=== PATIENT | male | born 1965 | race Caucasian/White ===

== ENCOUNTER 2016-03-16 10:06 | Day surgery (SDC) | payer OTHER ==
[2016-03-15 14:21] LABS: ABSOLUTE BASOPHILS # (AUTO) 0.1 10^3/uL (0.0-0.2); ABSOLUTE EOSINOPHILS # (AUTO) 0.2 10^3/uL (0.0-0.6); ABSOLUTE LYMPHOCYTES (AUTO) 2.4 10^3/uL (0.5-4.7); ABSOLUTE MONOCYTES (AUTO) 0.8 10^3/uL (0.1-1.4); ABSOLUTE NEUT (AUTO) 4.3 10^3/uL (1.7-8.2); APPEARANCE,URINE CLOUDY; BASOPHILS % (AUTO) 0.7 % (0-2); BILIRUBIN,URINE NEGATIVE (NEGATIVE); EOSINOPHILS % (AUTO) 2.6 % (0-6); GLUCOSE, URINE NEGATIVE (NEGATIVE); HEMATOCRIT 41.1 % (37.9-51.0); HEMOGLOBIN 13.8 g/dL (13.5-17.0); HGB HCT DIFFERENCE 0.3; KETONES,URINE NEGATIVE (NEGATIVE); LEUKOCYTE ESTERASE,URINE NEGATIVE (NEGATIVE); LYMPHOCYTES % (AUTO) 30.4 % (13-45); MEAN CORPUSCULAR HGB CONC 33.5 g/dL (32.0-36.0); MEAN CORPUSCULAR VOLUME 87 fl (80-97); MONOCYTES % (AUTO) 10.3 % (3-13); NITRITE,URINE NEGATIVE (NEGATIVE); PROTEIN,URINE NEGATIVE (NEGATIVE); RED BLOOD COUNT 4.74 10^6/uL (4.35-5.55); RED CELL DISTRIBUTION WIDTH 15.3 % (11.5-14.0); URINE SPECIFIC GRAVITY 1.013; UROBILINOGEN,URINE NEGATIVE mg/dL (<2.0); WHITE BLOOD COUNT 7.7 10^3/uL (4.0-10.5)
[~2016-03-16 10:06] MED LIST: CEFAZOLIN 1 GM/D5W RTU 1 GM/50 ML RTUPB IV PRN; RINGERS SOLUTION,LACTATED 1,000 ML IV PRN
[2016-03-16] MEDS ORDERED: LIDOCAINE 2% INJ (20 MG/ML) 20 ML MDV ONE (10:34)
[2016-03-16] MEDS ORDERED: BUPIVACAINE HCL 0.5 % INJ/PF 30 ML SDV ONE (10:34)
[2016-03-16] MEDS ORDERED: MIDAZOLAM 2 MG/2 ML INJ ONE (10:40)
[2016-03-16] MEDS ORDERED: PROPOFOL INJ 200 MG/20 ML VIAL IV ONE (10:41)
[2016-03-16] MEDS ORDERED: HYDROMORPHONE HCL INJ/PF 2 MG/ML AMPULE ONE (10:41)
[2016-03-16] MEDS ORDERED: ONDANSETRON HCL INJ/PF 4 MG/2 ML SDV ONE (10:41)
[2016-03-16] MEDS ORDERED: METOCLOPRAMIDE HCL INJ/PF 10 MG/2 ML SDV ONE (10:42)
--- NOTE | 2016-03-16 13:53 | [facility] OPERATIVE REPORT E ---
[facility] Operative Report NAME: ISABELL KENDRICK AGE: 51Y DATE OF SURGERY: 03/16/2016 ROOM: PREOPERATIVE DIAGNOSIS: Rangel neuroma, third intermetatarsal space, left foot. POSTOPERATIVE DIAGNOSIS: Rangel neuroma, third intermetatarsal space, left foot. OPERATION: Excision of Rangel neuroma, third intermetatarsal space, left foot. SURGEON: JEANNIE MONTENEGRO D.P.M. INTRAOPERATIVE FINDINGS: Indicated an enlargement of nerve tissue at the junction of the bifurcation of the third common digital nerve into the proper digital nerves innervating the adjacent sides of the third and fourth toe. Intraoperative findings were confirmed clinically. PROCEDURE: The patient was laying in the dorsal recumbent position. The left foot and leg were prepped and draped in the usual standard sterile orthopedic manner. After the local anesthesia was administered which was a regional infiltration around the surgical field with a 50/50 mixture of 2% Xylocaine and 0.5% Marcaine. After the anesthetic effect was accomplished, the left leg was elevated for approximately 2 minutes of time, and the left ankle pneumatic tourniquet was inflated up to 250 mmHg after the blood was exsanguinated from the left foot. The left leg was brought to the level of the table. Attention was directed right over the intermetatarsal areas of the third and fourth metatarsal. A curvilinear incision was placed right over the C area. The incision commenced at the web sites of the third and fourth toes distally and extended to the proximal one-third of the shafts of the fourth and third metatarsals. The initial incision was deepened. The superficial and deep subcutaneous tissues were dissected through blunt and sharp dissection. All bleeders were ligated. All vital structures were identified and protected from surgical trauma. At this point, the transverse ligament between the fourth and third metatarsal was severed. Pressure was applied on the plantar aspect of the foot, and the neuroma was brought into the surgical field. The neuroma was traced back proximally and distally until normal neurological tissue was encountered, and it was severed to that point. Final dilation was conducted. There was no further pathological tissue. At this point, the digital tourniquet was deflated, circulation to the left foot returned to normal immediately, and the normal digital color and temperature became apparent. After that, the surgical area was irrigated with copious amounts of sterile saline solution, and the closure of the subcutaneous tissues from deep to superficial was done at this point. The skin edges were repositioned and closed with 2-0 Vicryl using continuous interlocked stitch. A [place] was introduced into the surgical field to allow evacuation if there is any bleeding postoperatively and to protect hematoma formation into the surgical field. Next, a Betadine compression dressing was applied around the left foot. Patient tolerated procedures well, left the operating room with stable vital signs and in good condition. The patient was taken to the recovery room alert, conscious, and oriented. There are no permanent disabilities anticipated at this time. DICTATING PHYSICIAN: JEANNIE MONTENEGRO D.P.M. [id number] PHY#: [id number] ID: [id number] JOB#: [id number] ACCT: [id number] cc:JEANNIE MONTENEGRO D.P.M. >
== END 2016-03-16 12:54 | disposition home or self-care (01) ==
LOC: SC 10:06
PROVIDERS: ATTEND Podiatrist Foot & Ankle Surgery
PROC: 01BG0ZZ Excision of Tibial Nerve, Open Approach (ICD-10-PCS; principal; 2016-03-16 11:00)
DX: G57.62 Lesion of plantar nerve, left lower limb (principal); I10 Essential (primary) hypertension; J45.909 Unspecified asthma, uncomplicated; K21.9 Gastro-esophageal reflux disease without esophagitis
CPT/HCPCS: 36415; 85025; 81001; 88304 ×2; 28080; J2250; J3490; J0690; J2765; J1170; J2405; J2704; 1470

== ENCOUNTER 2017-07-31 09:30 | Day surgery (SDC) | payer OTHER ==
[~2017-07-31 09:30] MED LIST changes: -CEFAZOLIN 1 GM/D5W RTU 1 GM/50 ML RTUPB IV PRN; +PROPOFOL INJ 200 MG/20 ML VIAL IV ONE; -RINGERS SOLUTION,LACTATED 1,000 ML IV PRN
[2017-07-31 11:42] VITALS: BP 132/80
--- NOTE | 2017-07-31 13:49 | Operative Report ---
Operative Report DATE OF SURGERY: 07/31/17 Operative Report: The risks, benefits and alternatives of the procedure including risks of bleeding, perforation requiring surgery are explained to the patient in detail and informed consent is obtained. Patient was taken back to the endoscopy suite and placed in the left, lateral decubital position. Timeout was called. Propofol medication is administered. A rectal examination is done which did not reveal any masses, tears or fissures. An Olympus videoscope was inserted into the patient's rectum. The scope was then carefully advanced all the way to the cecum. The cecum was identified by the usual anatomical landmarks including the ileocecal valve as well as the appendiceal office. Photodocumentation is obtained. The scope was then sequentially pulled back via the various segments of the colon including the ascending colon, hepatic flexure, transverse colon, splenic flexure, descending colon and finally in to the rectosigmoid portions of the colon. Retroflexion maneuver is performed. PREOPERATIVE DIAGNOSIS: Colorectal cancer screening POSTOPERATIVE DIAGNOSIS: Cecal polyp was removed via biopsy forceps. Internal hemorrhoids OPERATION: Colonoscopy with biopsy SURGEON: STELLA CASTILLO ANESTHESIA: LMAC TISSUE REMOVED OR ALTERED: As noted above. COMPLICATIONS: None. ESTIMATED BLOOD LOSS: None. INTRAOPERATIVE FINDINGS: As noted above. PROCEDURE: Patient tolerated the procedure well. No immediate postprocedure complications are noted. Patient discharged in good condition. Discharge date 07/31/2017. Discharge diet: Regular. Discharge activity: Regular. 2-3 week follow-up to discuss findings. Patient is instructed to call the office or proceed to the emergency room should there be any further problems or questions. 3-5 year surveillance colonoscopy. We will await biopsies.
== END 2017-07-31 11:30 | disposition home or self-care (01) ==
LOC: END 09:30
PROVIDERS: ATTEND Internal Medicine Gastroenterology
DX: Z12.11 Encounter for screening for malignant neoplasm of colon (principal); D12.0 Benign neoplasm of cecum; K64.8 Other hemorrhoids; J45.30 Mild persistent asthma, uncomplicated; G47.30 Sleep apnea, unspecified; E78.00 Pure hypercholesterolemia, unspecified; I10 Essential (primary) hypertension; Z79.51 Long term (current) use of inhaled steroids
CPT/HCPCS: 45380; 88305 ×2; J2704; 811

== ENCOUNTER 2018-07-24 12:35 | Day surgery (SDC) | payer OTHER ==
[2018-07-17 10:16] LABS: ABSOLUTE BASOPHILS # (AUTO) 0.1 10^3/uL (0.0-0.2); ABSOLUTE EOSINOPHILS # (AUTO) 0.2 10^3/uL (0.0-0.6); ABSOLUTE LYMPHOCYTES (AUTO) 2.6 10^3/uL (0.5-4.7); ABSOLUTE MONOCYTES (AUTO) 0.8 10^3/uL (0.1-1.4); ABSOLUTE NEUT (AUTO) 3.5 10^3/uL (1.7-8.2); BASOPHILS % (AUTO) 0.9 % (0-2); EOSINOPHILS % (AUTO) 3.5 % (0-6); HEMATOCRIT 41.1 % (37.9-51.0); HEMOGLOBIN 13.7 g/dL (13.5-17.0); LYMPHOCYTES % (AUTO) 36.1 % (13-45); MEAN CORPUSCULAR HGB CONC 33.4 g/dL (32.0-36.0); MEAN CORPUSCULAR VOLUME 87 fl (80-97); MONOCYTES % (AUTO) 10.9 % (3-13); PLATELET COUNT 268 10^3/uL (150-450); RED BLOOD COUNT 4.74 10^6/uL (4.35-5.55); RED CELL DISTRIBUTION WIDTH 14.6 % (11.5-14.0); SEGMENTED NEUTROPHILS % (AUTO) 48.6 % (42-78); TOTAL CELLS COUNTED % (AUTO) 100 %; WHITE BLOOD COUNT 7.2 10^3/uL (4.0-10.5)
[2018-07-17 10:47] LABS: ANION GAP 14 (5-19); BLOOD UREA NITROGEN 13 mg/dL (7-20); CARBON DIOXIDE 25 mmol/L (22-30); CHLORIDE 106 mmol/L (98-107); GLUCOSE 80 mg/dL (75-110); POTASSIUM 5.2 mmol/L (3.6-5.0); SODIUM 144.5 mmol/L (137-145)
--- NOTE | 2018-07-17 14:00 | EKG REPORT ---
SEVERITY:- NORMAL ECG - SINUS RHYTHM : Confirmed by: Beltran Kendall MD 17-Jul-2018 14:00:38
[~2018-07-24 12:35] MED LIST changes: +BUPIVACAINE HCL 0.5%-EPI 1:200000 INJ/PF 30 ML VIAL ONE; -PROPOFOL INJ 200 MG/20 ML VIAL IV ONE
[2018-07-24] MEDS ORDERED: DEXAMETHASONE SOD PHOSPHATE INJ 4 MG/1 ML VIAL ONE (12:46)
[2018-07-24] MEDS ORDERED: ONDANSETRON HCL INJ/PF 4 MG/2 ML SDV ONE (12:46)
[2018-07-24] MEDS ORDERED: SUCCINYLCHOLINE CHLORIDE INJ 200 MG/10 ML VIAL ONE (12:46)
[2018-07-24] MEDS ORDERED: METOCLOPRAMIDE HCL INJ/PF 10 MG/2 ML SDV ONE (12:46)
[2018-07-24] MEDS ORDERED: CEFAZOLIN 2 GM/D5W RTU 0 GM/0 ML RTUPB IV ONE (14:29)
[2018-07-24] MEDS ORDERED: CEFAZOLIN 1 GM/D5W RTU 1 GM/50 ML RTUPB IV ONE ×2 (14:31→14:37)
[2018-07-24] MEDS ORDERED: LIDOCAINE 2% INJ-PF (100 MG/5 ML) SYRINGE ONE (14:35)
[2018-07-24] MEDS ORDERED: FENTANYL CITRATE INJ/PF 250 MCG/5 ML AMPULE ONE (14:36)
[2018-07-24] MEDS ORDERED: PROPOFOL INJ 200 MG/20 ML VIAL IV ONE (14:36)
[2018-07-24] MEDS ORDERED: MIDAZOLAM 2 MG/2 ML INJ ONE (14:36)
[2018-07-24] MEDS ORDERED: METHYLENE BLUE 50 MG/10 ML AMPULE ONE (14:46)
[2018-07-24] MEDS ORDERED: FAMOTIDINE INJ/PF 20 MG/2 ML SDV IV ONE (14:51)
[2018-07-24] MEDS ORDERED: PROMETHAZINE HCL INJ 25 MG/1 ML VIAL IV PRN ×2 (15:36)
[2018-07-24] MEDS ORDERED: DIPHENHYDRAMINE HCL 50 MG/ML VIAL IV PRN (15:36)
[2018-07-24] MEDS ORDERED: MEPERIDINE HCL/PF INJ 25 MG/1 ML DISP.SYRIN IV PRN (15:36)
[2018-07-24] MEDS ORDERED: MORPHINE SULFATE 10 MG/ML INJ IV PRN (15:36)
[2018-07-24] MEDS ORDERED: ONDANSETRON HCL INJ/PF 4 MG/2 ML SDV IV PRN (15:36)
[2018-07-24] MEDS ORDERED: OXYCODONE-ACETAMINOPHEN 5-325 MG TABLET PO PRN ×2 (15:36)
[2018-07-24] MEDS ORDERED: FENTANYL CITRATE INJ/PF 100 MCG/2 ML AMPUL IV PRN ×3 (15:36)
[2018-07-24] MEDS ORDERED: FENTANYL CITRATE INJ/PF 100 MCG/2 ML AMPUL ONE (16:10)
--- NOTE | 2018-07-24 16:17 | Operative Report ---
Nonrecallable Operative Report DATE OF SURGERY: 07/24/18 PREOPERATIVE DIAGNOSIS: perirectal fistula POSTOPERATIVE DIAGNOSIS: perirectal abscess OPERATION: exam under anesthesia and drainage of perirectal abscess SURGEON: OLGA CALDERON ANESTHESIA: GA TISSUE REMOVED OR ALTERED: none COMPLICATIONS: none ESTIMATED BLOOD LOSS: 20cc. PROCEDURE: see dictation
--- NOTE | 2018-07-24 16:22 | Discharge Summary ---
Discharge Summary (SDC) - Discharge Final Diagnosis: perirectal abscess Date of Surgery: 07/24/18 Discharge Date: 07/24/18 Condition: Good Treatment or Instructions: leave gauze in place till tomorrow return to clinic tomorrow at 1pm for me to remove the gauze Referrals: JOSE DAVID ENG DO [Primary Care Provider] - Discharge Diet: As Tolerated Discharge Activity: Activity As Tolerated, No Lifting Over 10 Pounds Report the Following to Your Physician Immediately: Shortness of Breath, Nausea, Vomiting, Increase in Pain, Unusual Bleeding - pt needs to come to my office at 1pm [id number] 07/25 to have the pack removed
[2018-07-24] MEDS ORDERED: LIDOCAINE 2% INJ (20 MG/ML) 20 ML MDV ONE (16:23)
[2018-07-24] MEDS ORDERED: OXYCODONE-ACETAMINOPHEN 5-325 MG TABLET ONE (17:24)
--- NOTE | 2018-07-24 17:45 | OPERATIVE REPORT E ---
Operative Report NAME: ISABELL KENDRICK JR : 1965 AGE: 53Y DATE OF SURGERY: 07/24/2018 ROOM: PREOPERATIVE DIAGNOSIS: PERIRECTAL FISTULA. POSTOPERATIVE DIAGNOSIS: PERIRECTAL ABSCESS. OPERATION: 1. Exam under anesthesia. 2. Incision and drainage of perirectal abscess. SURGEON: OLGA CALDERON M.D. INDICATIONS FOR SURGERY: This is a 53-year-old male who presented to my office a number of weeks ago with persistent drainage through a small perirectal skin defect that had been previously drained as a perirectal abscess. In the office it was reopened and he continued to have drainage from that punctate area on his inner buttock approximately about 4 to 5 cm from the anal verge. It was felt that he had a perirectal fistula as the area would continually heal over and then reopen and drain. He was, therefore, scheduled for this exam under anesthesia and possible fistulotomy. FINDINGS: Rectal abscess cavity but no rectal fistulous tract. PROCEDURE IN DETAIL: The patient was brought to the operating in an awake, alert, and stable condition. He was placed on the operating room table in the supine position, induced under general anesthesia and then placed up in a high lithotomy position. Once this was done the perineum and rectum were prepped and draped in the usual sterile fashion. After appropriate timeout and site verification the anoscope was placed into the rectum. The fistula was at the 5 o'clock position with the patient in a supine position lithotomy. We pressed the fistula tissue and the buttock tissue and did not note any kind of internal drainage in all 4 quadrants of the rectum with the anoscope in place. I then used an 18 gauge intra-cath attached to a syringe filled with methylene blue dye saline and the catheter easily passed in through the fistulous tract and then injected the methylene blue dye saline and it did not empty into a sinus tract within the rectum itself. It did fill a small cavity in the perirectal fat but I could not identify a tract that directly entered the rectum. I then placed a small fistula probe in through the skin defect and it progressed towards the rectum but it did not drop into the rectum itself. I increased the skin defect over the probe with the Bovie cautery to open up the skin defect on the perirectal tissue and this dropped into a cavity in the perirectal space. I then used Asepto syringe and placed the tip into the cavity and instilled dye under some pressure and could not elicit drainage into the rectum itself at all. I, therefore, elected to irrigate out this cavity and pack it with an Iodoform packing as I did not want to create a new fistulous tract, nor did I identify a fistulous tract in the rectum itself. Therefore, the cavity was packed with Iodoform gauze and this completed the procedure. The patient was awakened in the operating room, extubated, and transferred to recovery in stable condition. DICTATING PHYSICIAN: OLGA CALDERON M.D. [id number] PHY#: [id number] ID: [id number] JOB#: [id number] ACCT: [id number] cc:OLGA CALDERON M.D. >
[2018-07-24 19:00] VITALS: BP 141/80
== END 2018-07-24 18:40 | disposition home or self-care (01) ==
LOC: OROUT 12:35
PROVIDERS: ATTEND Surgery
DX: K61.1 Rectal abscess (principal); I10 Essential (primary) hypertension; K21.9 Gastro-esophageal reflux disease without esophagitis; E78.00 Pure hypercholesterolemia, unspecified; Z79.891 Long term (current) use of opiate analgesic; Z79.82 Long term (current) use of aspirin; Z79.899 Other long term (current) drug therapy; J45.909 Unspecified asthma, uncomplicated; I20.9 Angina pectoris, unspecified
CPT/HCPCS: 93005; 36415 ×2; 84132; 85025; 80048; 93010; 46040; A6266; J2250; J3490; J0690; J1100; J3010 ×2; J2001; J2765; J0330; J2405; J2704; S0028; Q9968

== ENCOUNTER 2019-01-06 05:58 | Day surgery (SDC) | payer OTHER ==
[2019-01-05 11:00] LABS: ABSOLUTE BASOPHILS # (AUTO) 0.1 10^3/uL (0.0-0.2); ABSOLUTE EOSINOPHILS # (AUTO) 0.2 10^3/uL (0.0-0.6); ABSOLUTE LYMPHOCYTES (AUTO) 2.5 10^3/uL (0.5-4.7); ABSOLUTE MONOCYTES (AUTO) 0.8 10^3/uL (0.1-1.4); ABSOLUTE NEUT (AUTO) 5.2 10^3/uL (1.7-8.2); BASOPHILS % (AUTO) 0.9 % (0-2); HEMATOCRIT 41.2 % (37.9-51.0); HEMOGLOBIN 13.8 g/dL (13.5-17.0); MEAN CORPUSCULAR HEMOGLOBIN 29.3 pg (27.0-33.4); MEAN CORPUSCULAR HGB CONC 33.5 g/dL (32.0-36.0); MEAN CORPUSCULAR VOLUME 88 fl (80-97); PLATELET COUNT 252 10^3/uL (150-450); RED BLOOD COUNT 4.71 10^6/uL (4.35-5.55); RED CELL DISTRIBUTION WIDTH 14.3 % (11.5-14.0); SEGMENTED NEUTROPHILS % (AUTO) 59.1 % (42-78); TOTAL CELLS COUNTED % (AUTO) 100 %; WHITE BLOOD COUNT 8.7 10^3/uL (4.0-10.5)
[2019-01-05 11:28] LABS: ANION GAP 11 (5-19); BLOOD UREA NITROGEN 15 mg/dL (7-20); CALCIUM 9.7 mg/dL (8.4-10.2); CARBON DIOXIDE 27 mmol/L (22-30); CHLORIDE 105 mmol/L (98-107); GLUCOSE 96 mg/dL (75-110); POTASSIUM 5.1 mmol/L (3.6-5.0)
[~2019-01-06 05:58] MED LIST changes: -BUPIVACAINE HCL 0.5%-EPI 1:200000 INJ/PF 30 ML VIAL ONE; +CEFAZOLIN SODIUM 1 GM in DEXTROSE 5%-WATER 50 ML IV PRN; +METRONIDAZOLE 500 MG/NS RTU 500 MG/100 ML RTUPB IV ONE; +METRONIDAZOLE 500 MG/NS RTU 500 MG/100 ML RTUPB IV PRN
[2019-01-06] MEDS ORDERED: FENTANYL CITRATE INJ/PF 100 MCG/2 ML AMPUL ONE (06:21)
[2019-01-06] MEDS ORDERED: MIDAZOLAM 2 MG/2 ML INJ ONE (06:21)
[2019-01-06] MEDS ORDERED: PROPOFOL INJ 200 MG/20 ML VIAL IV ONE (06:21)
[2019-01-06] MEDS ORDERED: DEXAMETHASONE SOD PHOSPHATE INJ 4 MG/1 ML VIAL ONE (06:21)
[2019-01-06] MEDS ORDERED: ONDANSETRON HCL INJ/PF 4 MG/2 ML SDV ONE (06:21)
[2019-01-06] MEDS ORDERED: METHYLENE BLUE 50 MG/10 ML AMPULE ONE (07:37)
[2019-01-06] MEDS ORDERED: BUPIVACAINE INJ/PF LIPOSOME/PF 266 MG/20 ML SDV ONE (08:33)
[2019-01-06] MEDS ORDERED: MEPERIDINE HCL/PF INJ 25 MG/1 ML DISP.SYRIN IV PRN (08:35)
[2019-01-06] MEDS ORDERED: PROMETHAZINE HCL INJ 25 MG/1 ML VIAL IV PRN (08:35)
[2019-01-06] MEDS ORDERED: DIPHENHYDRAMINE HCL 50 MG/ML VIAL IV PRN (08:35)
[2019-01-06] MEDS ORDERED: FENTANYL CITRATE INJ/PF 100 MCG/2 ML AMPUL IV PRN ×3 (08:35)
[2019-01-06] MEDS ORDERED: MORPHINE SULFATE 10 MG/ML INJ IV PRN (08:35)
--- NOTE | 2019-01-06 09:00 | Discharge Summary ---
Discharge Summary (SDC) - Discharge Final Diagnosis: fistula in ano Date of Surgery: 01/06/19 Discharge Date: 01/06/19 Condition: Good Treatment or Instructions: ok to do sitzs baths prn itching or pain Referrals: JOSE DAVID ENG DO [Primary Care Provider] - Discharge Diet: As Tolerated Discharge Activity: Activity As Tolerated Report the Following to Your Physician Immediately: Increase in Pain - pt needs a f/u iwth me in 7-10 days.
--- NOTE | 2019-01-06 09:05 | Operative Report ---
Nonrecallable Operative Report DATE OF SURGERY: 01/06/19 PREOPERATIVE DIAGNOSIS: Fistula in ano POSTOPERATIVE DIAGNOSIS: Fistula in ano OPERATION: Fistulotomy with seton placement SURGEON: OLGA CALDERON ANESTHESIA: GA TISSUE REMOVED OR ALTERED: None COMPLICATIONS: None ESTIMATED BLOOD LOSS: 5 cc INTRAOPERATIVE FINDINGS: See dictated note PROCEDURE: Patient was brought to the operating room awake alert in stable condition placed on the operative table supine position induced under general anesthesia intubated he was then placed in high lithotomy position in the tayler-rectum was prepped and draped in usual sterile fashion. After appropriate timeout and site verification the procedure commenced. Patient had a small external opening in the skin approximately 3 cm from the anal verge at the 6 o'clock position just to the left of midline as previously documented on the MRI scan. Using a lacrimal probe with lubrication on it it was easily slipped into the poor and then easily traversed directly into the rectum and exiting a small pore within the rectum above the sphincters. Was pa lpated with the digit. We then use that probe to pass a red rubber vessel loop through the tract between the inside of the rectum and the external opening. The vessel loop was then tied to itself and then reinforced with an 0 silk suture around the ends. I then opened the skin on the buttocks skin over the seton for approximately 3 cm using the Bovie cautery. I curetted out the distal portion of the tract. The tract was direct course between the 6 to 6 o'clock position on the anal skin and the 6 o'clock position within the rectum. The area was then anesthetized with Exparil. This completed the procedure he was then awakened in the operating room extubated transferred recovery in stable condition
[2019-01-06] MEDS ORDERED: DIPHENHYDRAMINE HCL 25 MG CAPSULE ONE (09:32)
--- NOTE | 2019-01-06 09:36 | EKG REPORT ---
SEVERITY:- OTHERWISE NORMAL ECG - SINUS RHYTHM ATRIAL PREMATURE COMPLEX : Confirmed by: Craig Muñoz 06-Jan-2019 09:35:21
[2019-01-06 10:56] VITALS: BP 135/90
[2019-01-06] MEDS ORDERED: SUCCINYLCHOLINE CHLORIDE INJ 200 MG/10 ML VIAL ONE (11:49)
== END 2019-01-06 10:30 | disposition home or self-care (01) ==
LOC: OROUT 05:58
PROVIDERS: ATTEND Surgery
DX: K60.3 Anal fistula (principal); I10 Essential (primary) hypertension; E78.00 Pure hypercholesterolemia, unspecified; Z79.899 Other long term (current) drug therapy; Z79.82 Long term (current) use of aspirin
CPT/HCPCS: 93005; 36415 ×2; 84132; 85025; 80048; 93010; 00902; 46020; J2250; J0690; J1100; J3010; J3490; J0330; J2405; J7060; J2704; C9290; Q9968; 902

== ENCOUNTER 2019-04-02 05:20 | Day surgery (SDC) | payer OTHER ==
[2019-03-25 10:41] LABS: ABSOLUTE BASOPHILS # (AUTO) 0.1 10^3/uL (0.0-0.2); ABSOLUTE EOSINOPHILS # (AUTO) 0.2 10^3/uL (0.0-0.6); ABSOLUTE MONOCYTES (AUTO) 0.9 10^3/uL (0.1-1.4); ABSOLUTE NEUT (AUTO) 5.7 10^3/uL (1.7-8.2); BASOPHILS % (AUTO) 0.7 % (0-2); EOSINOPHILS % (AUTO) 2.4 % (0-6); HEMATOCRIT 41.3 % (37.9-51.0); HEMOGLOBIN 13.7 g/dL (13.5-17.0); LYMPHOCYTES % (AUTO) 30.5 % (13-45); MEAN CORPUSCULAR HEMOGLOBIN 29.4 pg (27.0-33.4); MEAN CORPUSCULAR HGB CONC 33.1 g/dL (32.0-36.0); MEAN CORPUSCULAR VOLUME 89 fl (80-97); MONOCYTES % (AUTO) 8.8 % (3-13); PLATELET COUNT 281 10^3/uL (150-450); RED BLOOD COUNT 4.65 10^6/uL (4.35-5.55); RED CELL DISTRIBUTION WIDTH 14.1 % (11.5-14.0); SEGMENTED NEUTROPHILS % (AUTO) 57.6 % (42-78); TOTAL CELLS COUNTED % (AUTO) 100 %; WHITE BLOOD COUNT 9.9 10^3/uL (4.0-10.5)
[2019-03-25 11:10] LABS: ANION GAP 15 (5-19); BLOOD UREA NITROGEN 17 mg/dL (7-20); CALCIUM 9.9 mg/dL (8.4-10.2); CARBON DIOXIDE 25 mmol/L (22-30); CHLORIDE 102 mmol/L (98-107); GLUCOSE 92 mg/dL (75-110); POTASSIUM 4.5 mmol/L (3.6-5.0)
--- NOTE | 2019-03-25 13:18 | EKG REPORT ---
SEVERITY:- NORMAL ECG - SINUS RHYTHM : Confirmed by: Beltran Kendall MD 25-Mar-2019 13:18:06
[~2019-04-02 05:20] MED LIST changes: -CEFAZOLIN SODIUM 1 GM in DEXTROSE 5%-WATER 50 ML IV PRN; +CEFAZOLIN SODIUM 2 GM in DEXTROSE 5%-WATER 100 ML IV PRN; +LACTATED RINGERS 1000 ML IV PRN; +LIDOCAINE 0.5% INJ-PF (5 MG/ML) 50 ML SDV SUBCUT PRN; -METRONIDAZOLE 500 MG/NS RTU 500 MG/100 ML RTUPB IV ONE; -METRONIDAZOLE 500 MG/NS RTU 500 MG/100 ML RTUPB IV PRN
[2019-04-02] MEDS ORDERED: PROPOFOL INJ 200 MG/20 ML VIAL IV ONE ×2 (07:05→08:28)
[2019-04-02] MEDS ORDERED: MIDAZOLAM 2 MG/2 ML INJ ONE (07:05)
[2019-04-02] MEDS ORDERED: FENTANYL CITRATE INJ/PF 100 MCG/2 ML AMPUL ONE ×2 (07:05→08:27)
[2019-04-02] MEDS ORDERED: METHYLENE BLUE 50 MG/10 ML AMPULE ONE (07:08)
[2019-04-02] MEDS ORDERED: LIDOCAINE 1%/EPINEPHRINE INJ 20 ML VIAL ONE (07:09)
[2019-04-02] MEDS ORDERED: BUPIVACAINE INJ/PF LIPOSOME/PF 266 MG/20 ML SDV ONE (07:41)
[2019-04-02] MEDS ORDERED: MORPHINE SULFATE 10 MG/ML INJ IV PRN (07:54)
[2019-04-02] MEDS ORDERED: MEPERIDINE HCL/PF INJ 25 MG/1 ML DISP.SYRIN IV PRN (07:54)
[2019-04-02] MEDS ORDERED: DIPHENHYDRAMINE HCL 50 MG/ML VIAL IV PRN (07:54)
[2019-04-02] MEDS ORDERED: OXYCODONE-ACETAMINOPHEN 5-325 MG TABLET PO PRN ×2 (07:54)
[2019-04-02] MEDS ORDERED: ONDANSETRON HCL INJ/PF 4 MG/2 ML SDV IV PRN (07:54)
[2019-04-02] MEDS ORDERED: FENTANYL CITRATE INJ/PF 100 MCG/2 ML AMPUL IV PRN ×3 (07:54)
--- NOTE | 2019-04-02 08:18 | Operative Report ---
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 He was then placed up in a high lithotomy position. After appropriate timeout and site verification the rectum and perianal area were prepped and draped. The seton was identified at the 6 o'clock position was placed under traction there was still significant amount of external sphincter that it was passing through however the skin over the external sphincter was incised with Bovie cautery and then the seton was tightened down to the muscle belly itself. Seton appeared to be in good position through the fistula. Exam of the rectum in all 4 quadrants revealed no further evidence of other fistula. After seton was tightened another stitch was applied to it at its tail using 2-0 silk. The rectum was then anesthetized with Exparel in all 4 quadrants. Sterile gauze dressing was applied over the rectum. This completed the procedure. Estimated blood loss was 2 cc. Sponge and needle counts were correct x2 the patient was then returned recovery in stable condition
--- NOTE | 2019-04-02 08:20 | Discharge Summary ---
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
[2019-04-02 09:54] VITALS: BP 129/72
[2019-04-02] MEDS ORDERED: ONDANSETRON HCL INJ/PF 4 MG/2 ML SDV ONE (10:39)
[2019-04-02] MEDS ORDERED: KETOROLAC TROMETHAMINE 60 MG/2 ML SDV ONE (10:39)
[2019-04-02] MEDS ORDERED: DEXAMETHASONE SOD PHOSPHATE INJ 4 MG/1 ML VIAL ONE (10:39)
== END 2019-04-02 09:45 | disposition home or self-care (01) ==
LOC: OROUT 05:20
PROVIDERS: ATTEND Surgery
DX: K60.3 Anal fistula (principal); I10 Essential (primary) hypertension; E78.00 Pure hypercholesterolemia, unspecified; Z79.899 Other long term (current) drug therapy; Z79.82 Long term (current) use of aspirin
CPT/HCPCS: 93005; 36415; 85025; 80048; 93010; 00902; 46020; J2250; J0690; J1100; J1885; J3010; J2405; J7060; J2704; C9290; Q9968; 902; J3490